=== PATIENT | male | born 1995 | race Two or more races ===

== ENCOUNTER 2019-08-15 00:32 | Emergency (ER) | payer SELFPAY ==
[~2019-08-15] VITALS: Ht 177.8 cm; Wt 95.7 kg
[2019-08-15] MEDS ORDERED: KETOROLAC 30 MG/1 ML IM ONE (01:00)
[2019-08-15] MEDS ORDERED: KETOROLAC 30 MG/1 ML ONE (01:03)
[2019-08-15 01:06] LABS: BASOPHILS # (AUTO) 0.06 x10^3/uL (0-0.1); BASOPHILS % (AUTO) 1 % (0-1); EOSINOPHILS # (AUTO) 0.07 x10^3/uL (0-0.4); EOSINOPHILS % (AUTO) 1 % (1-7); LYMPHOCYTES # (AUTO) 2.98 x10^3/uL (1-3.4); LYMPHOCYTES % (AUTO) 25 % (22-44); MD NO; MEAN CORPUSCULAR HEMOGLOBIN 27.9 pg (27.5-34.5); MEAN CORPUSCULAR HGB CONC 33.3 g/dL (33.2-36.2); MEAN CORPUSCULAR VOLUME 83.8 fL (81-97); MEAN PLATELET VOLUME 9.9 fL (7.4-10.4); MONOCYTES # (AUTO) 1.22 x10^3/uL (0.2-0.8); MONOCYTES % (AUTO) 10 % (2-9); NEUTROPHILS # (AUTO) 7.57 x10^3/uL (1.8-6.8); NEUTROPHILS % (AUTO) 64 % (42-75); PLATELET COUNT 210 x10^3/uL (130-400); RED CELL DISTRIBUTION WIDTH 14.6 % (9.4-14.8)
[2019-08-15 01:10] VITALS: BP 122/83
--- NOTE | 2019-08-15 01:12 | NUR ---
Pt presents to ed c/o intermittent cp, L sided heavy pain, since Tuesday. Denies any cardiac hx or familial hx. Abnormal ekg noted in triage. All monitoring applied. Vss. Call light within reach.
[2019-08-15 01:19] LABS: ALBUMIN 4.1 g/dL (3.4-5.0); ANION GAP 5 mmol/L (5-15); CALCIUM 8.8 mg/dL (8.5-10.1); CHLORIDE 106 mmol/L (98-107); CREATININE 1.02 mg/dL (0.7-1.3)
[2019-08-15 01:23] LABS: TROPONIN I < 0.015 ng/mL (0.000-0.045)
== END 2019-08-15 02:14 | disposition home or self-care (01) ==
LOC: ED 01:55
DX: I30.0 Acute nonspecific idiopathic pericarditis (principal); R07.89 Other chest pain; R94.31 Abnormal electrocardiogram [ECG] [EKG]
CPT/HCPCS: 36415; 71045; 80048; 82040; 84484; 85025; 85379; 93005; 96372; 99285; J1885